=== PATIENT | male | born 1970 | race Caucasian/White ===

== ENCOUNTER 2020-03-22 08:41 | Outpatient (CLI) | payer BC, OTHER ==
[2020-03-22 16:10] LABS: #Basophils 0.1 thou/uL (0.0-0.2); #Eosinphils 0.4 thou/uL (0.0-0.7); #Lymphocytes 1.5 thou/uL (1.20-3.40); #Monocytes 0.8 thou/uL (0.11-0.59); #Neutrophils 6.2 thou/uL (1.40-6.50); %Basophils 0.7 % (0.0-1.0); %Eosinophils 4.5 % (0.0-10.0); %Lymphocytes 16.4 % (21.0-51.0); %Monocytes 9.1 % (0.0-10.0); %Neutrophils 69.4 % (42.0-75.0); Hemoglobin 14.2 g/dL (14.0-18.0); Mean Corpuscular HGB CONC 33.2 g/dL (32.0-36.0); Mean Corpuscular Hemoglobin 29.2 pg (27.0-31.0); Mean Corpuscular Volume 87.8 fL (78.0-98.0); Mean Platelet Volume 8.9 fL (7.4-10.4); Platelet Count 195 thou/uL (130-400); RBC Distribution Width 13.2 % (11.5-14.5); Red Blood Cell (RBC) Count 4.88 mill/uL (4.70-6.10); White Blood Cell (WBC) Count 8.9 thou/uL (4.8-10.8)
[2020-03-22 16:56] LABS: Anion Gap 15 mmol/L (10-20); BUN (Urea Nitrogen) 12 mg/dL (8.4-25.7); Calc. Creatinine Clearance 0 mL/min (70-130); Calcium 9.3 mg/dL (7.8-10.44); Carbon Dioxide 23 mmol/L (22-29); Chloride 106 mmol/L (98-107); Estimated GFR-MDRD 84; Glucose 122 mg/dL (70-105); Potassium 3.8 mmol/L (3.5-5.1); Sodium 140 mmol/L (136-145)
[2020-03-23 10:59] LABS: SARS-CoV-2 MS2 Positive; SARS-CoV-2 N Gene Negative; SARS-CoV-2 S Gene Negative; SARS-CoV-2 by NAA Not Detected (NotDetected); SARS-CoV-2 orf1ab Negative
== END 2020-03-22 08:42 | disposition home or self-care (01) ==
LOC: LABBT 08:41
DX: Z01.812 Encounter for preprocedural laboratory examination (principal); S52.572A Other intraarticular fracture of lower end of left radius, initial encounter for closed fracture; Z20.828 Contact with and (suspected) exposure to other viral communicable diseases
CPT/HCPCS: 80048; 85025; 87635; U0003

== ENCOUNTER 2020-03-27 06:30 | Day surgery (SDC) | payer BC ==
[2020-03-26 10:22] VITALS: BMI 37.3
[2020-03-27] MEDS ORDERED: Fentanyl 100 MCG/2 ML VIAL ONE ×3 (07:50→11:38)
[2020-03-27] MEDS ORDERED: Midazolam HCl 2 mg/2 ml Vial ONE (07:50)
[2020-03-27] MEDS ORDERED: Ondansetron PF 4 MG/2 ML Vial ONE (12:07)
[2020-03-27] MEDS ORDERED: EPHEDRINE 25 MG/5 ML SYRINGE ONE (12:07)
[2020-03-27] MEDS ORDERED: PROPOFOL 200 MG/20 ML VIAL ONE (12:07)
[2020-03-27] MEDS ORDERED: Ketorolac Tromethamine 30 MG/ML VIAL ONE (12:07)
[2020-03-27] MEDS ORDERED: Bupivacaine HCl 0.5%/Epinephrine 1:200,000/PF 30 ml Vial ONE (12:07)
[2020-03-27] MEDS ORDERED: Lidocaine 1% PF 5 ML VIAL ONE (12:07)
--- NOTE | 2020-03-27 13:07 | OP ---
DATE OF PROCEDURE: 03/27/2020 PREOPERATIVE DIAGNOSIS: Left distal radius intra-articular fracture, greater than 3 fragments. POSTOPERATIVE DIAGNOSIS: Left distal radius intra-articular fracture, greater than 3 fragments. PROCEDURES PERFORMED: 1. Open reduction and internal fixation of left distal radius fracture, greater than 3 fragments. 2. Application of volar splint. GENERAL NEUROLOGIST: Damien Seals PA-C ANESTHESIOLOGIST: Darren. ANESTHESIA: The patient received an LMA with a supraclavicular. ESTIMATED BLOOD LOSS: Less than 30 mL. TOURNIQUET TIME: 47 minutes at 250 mmHg. ANTIBIOTICS: Ancef 2 g. IMPLANTS: A 2.4 variable angle LCP plate with five 2.4 locking screws and three 2.7 nonlocking screws. COMPLICATIONS: None. HISTORY OF PRESENT ILLNESS: Mr. Hardwick is a 49-year-old male, status post ground level fall off his trailer down onto his left wrist. The patient is right-hand dominant and works for the [employer]. The patient's left wrist had intra-articular comminution as well as dorsal tilt. I discussed with him that given the angulation split, I felt that he would best be served with open reduction and internal fixation. I discussed the risks and benefits of surgery to include pain, scar, bleeding, infection, damage to vital structures, decreased range of motion and strength, continued pain despite surgical intervention, need for further surgeries, and loss of life or limb. The patient and family understood the risks and benefits of procedure and elected to proceed. DESCRIPTION OF PROCEDURE: A time-out was performed designating the patient's left upper extremity as the operative site based on site, consents, and marking. After time-out, the patient's lower extremity was prepped and draped in a sterile fashion. Tourniquet kept up for a total of 47 minutes. The patient had an anterior incision made over the patient's flexor carpi radialis down through the skin, came down to the FCR, retracted it radially, split through the patient's fascia, pulled the pronator quadratus, pulled the flexor pollicis longus ulnarly, and came down onto that and used wood handle elevators to elevate off the fracture site to expose the fracture. We gently reduced. We then used our 5-hole plate and used that as a reduction tool, placed a drill hole in the shaft, ensured it was centered on the shaft and allow us to translate the bone. We then reduced it. We then translated the plate and we liked its fit as well as the trajectory. We placed 2 guidewires; placed one, redrilled, and placed 2 guidewires based on the new position of the plate. We then placed the 3 center screws and looked in AP and lateral views to ensure they were out of the joint. We placed the most ulnar screw and then the radial styloid screw, which had replaced from 16 to 18 to give a longer length. We looked under AP, lateral, PA, and ulnar deviated views to make sure the screws were out of the bone. We then moved proximally. We had placed one 2.7 screw. We replaced 3 total of 16, 2.7 screws, one was in and out. We washed. We took final pictures. It showed a good improvement of the tilt as well as about 1 mm step-off in intra-articular split. We were all happy with our reduction and alignment. We washed. We closed the pronator quadratus, closed subcu and closed the skin with nylon, and placed the patient in a volar splint. My speech pathologist assistant helped me with the case with retraction of the structures, helped with reduction, application of the plate, pinning plate, screws, and closure, and application of splint. The patient will be discharged to home. Use a sling either from here or from his house. He will follow up with me in about 10 to 14 days for suture removal and transition to Velcro wrist splint. Remain in splint until then. He will be sent home with pain medications. Job ID: [id number]
[2020-03-27] MEDS ORDERED: Ondansetron ODT 4 MG TAB ONE (14:03)
[2020-03-27] MEDS ORDERED: Promethazine HCl 25 MG/ML VIAL ONE (15:26)
--- NOTE | 2020-03-27 17:33 | RAD ---
LEFT WRIST: 03/27/20 Five fluoroscopic views from OR are presented. INDICATIONS: Open reduction and internal fixation left wrist. FINDINGS/IMPRESSION: These images show fixation of the distal radius with plate and screws. POS: [facility]
== END 2020-03-27 16:30 | disposition home or self-care (01) ==
LOC: SDC 06:30
PROVIDERS: ATTEND Orthopaedic Surgery
PROC: 0PSJ04Z Reposition Left Radius with Internal Fixation Device, Open Approach (ICD-10-PCS; principal; 2020-03-27)
DX: S52.572A Other intraarticular fracture of lower end of left radius, initial encounter for closed fracture (principal); I10 Essential (primary) hypertension; E78.5 Hyperlipidemia, unspecified; Z79.84 Long term (current) use of oral hypoglycemic drugs; Z79.899 Other long term (current) drug therapy
CPT/HCPCS: 76000; 93005; 93010; C1713; J0690; J1885; J2250; J2405; J2550; J2704; J3010; Q0162